=== PATIENT | female | born 1980 | race Caucasian/White ===

== ENCOUNTER 2016-12-31 10:37 | Emergency (ER) | payer MEDICAID ==
[~2016-12-31] VITALS: Wt 78.0 kg
[~2016-12-31 10:37] MED LIST: CALC-600 PO; CIPR500T4 PO; HYDR-906 PO; IBUP-1542 PO; IRON18TA PO; NEOM28OI TOP; ONDA4TAB35 PO; PHEN-538 PO; PREN1TAB49 PO; TAMS-14 PO
--- NOTE | 2016-12-31 12:07 | RADRPT ---
PROCEDURE: Right knee series. CLINICAL INDICATION: Right knee pain after trauma TECHNIQUE: Three views of the right knee are available for review. COMPARISON: None available FINDINGS: There is normal mineralization and alignment of the bones of the right knee. There is no definite f racture or dislocation. Evaluation of the central tibial plateau is somewhat limited due to multipl e overlying loose bodies.. Multiple loose bodies are seen posterior to the joint. There is a small joint effusion. Overlying soft tissues are unremarkable. IMPRESSION: 1. No evidence of acute fracture or dislocation. 2. Multiple loose bodies within the joint space with associated small joint effusion. RPTAT: KK .Medardo Edmonds MD, MD Date Time Electronically viewed and signed by .Medardo Edmonds MD, on 12/31/2016 12:06 .B/
[2016-12-31] MEDS ORDERED: TRAM50TA2 PO (12:20)
[2016-12-31] MEDS ORDERED: IBUP-1542 PO (12:20)
--- NOTE | 2016-12-31 12:26 | ERD ---
ER Documentation Chief Complaint Date/Time DATE: 12/31/16 TIME: 12:24 Chief Complaint R KNEE PAIN FROM FALLING YESTERDAY. NO DEFORMITY HPI This 36-year-old female presents after hitting her right knee on some luggage yesterday. She has pain in the lateral aspect of right knee. She has some pain with flexion. She denies any restricted range of motion set mildly due to pain but no weakness. She has no redness or bleeding. She denies any calf swelling, foot pain, additional symptoms ROS All systems reviewed and are negative except as per history of present illness. Medications Home Meds Active Scripts Tramadol HCl (Tramadol HCl) 50 Mg Tablet, 50 MG PO Q4 Y for PAIN, #15 TAB Prov:BRITTANY GUARDADO MD 12/31/16 Ibuprofen* (Motrin*) 600 Mg Tab, 600 MG PO Q6, #20 TAB Prov:BRITTANY GUARDADO MD 12/31/16 Tamsulosin Hcl* (Flomax*) 0.4 Mg Cap.er.24h, 0.4 MG PO QPM for 4 Days, #4 CAP Prov:KATARINA WHIPPLE 06/22/16 Ibuprofen* (Motrin*) 600 Mg Tab, 600 MG PO Q6, #30 TAB Prov:KATARINA WHIPPLE 06/22/16 Hydrocodone/Acetaminophen ([place] 5-325 Tablet) 1 Each Tablet, 1 TAB PO Q6H Y for PAIN, #20 TAB Prov:KATARINA WHIPPLE 06/22/16 Neomycin-Bacitrac Zinc-Polymyxin (Triple Antibiotic Ointment*) 28.35 Gm Oint..gm., 1 APPLIC TOP TID for 7 Days, EA Prov:BRITTANY GUARDADO MD 01/05/16 Ibuprofen* (Motrin*) 600 Mg Tab, 600 MG PO Q6, #16 TAB Prov:BRITTANY GUARDADO MD 01/05/16 Ondansetron Hcl* (Zofran* ODT) 4 mg -ODT Tab.disper, 4 MG PO Q8 Y for NAUSEA AND /OR VOMITING, #30 TAB Prov:RHONA SEVILLA NP 05/20/15 Phenazopyridine Hcl* (Pyridium*) 200 Mg Tab, 200 MG PO TID Y for DY, #6 TAB Prov:RHONA SEVILLAKenney MASCARA MOLDER 05/20/15 Ciprofloxacin Hcl* (Ciprofloxacin Hcl*) 500 Mg Tablet, 500 MG PO BID for 10 Days , TAB Prov:RHONA SEVILLA [employer] MOLDER 05/20/15 Reported Medications Calcium (Calcium) 500 Mg Tablet, 500 MG PO DAILY 03/11/12 Iron (Iron) 18 Mg Tablet, 18 MG PO DAILY 03/11/12 Vits W-Ca,Fe,Fa(<1MG) () 1 Tab Tablet, 1 TAB PO DAILY 03/11/12 Allergies Allergies: Coded Allergies: No Known Allergy (Unverified , 01/23/12) PMhx/Soc Medical and Surgical Hx: pt denies Medical Hx History of Surgery: Yes ( X2) Anesthesia Reaction: No Hx Neurological Disorder: No Hx Respiratory Disorders: No Hx Cardiac Disorders: No Hx Psychiatric Problems: No Hx Miscellaneous Medical Probl: No Hx Alcohol Use: No Hx Substance Use: No Hx Tobacco Use: No Smoking Status: Never smoker Physical Exam Vitals Vital Signs Date Time Temp Pulse Resp B/P Pulse Ox O2 Delivery O2 Flow Rate FiO2 12/31/16 10:40 98.8 84 20 140/81 98 Physical Exam Const: [] Alert, not ill-appearing Head: Atraumatic Eyes: Normal Conjunctiva ENT: Normal External Ears, Nose and Mouth. Neck: Full range of motion..~ No meningismus. Resp: Clear to auscultation bilaterally Cardio: Regular rate and rhythm, no murmurs Abd: Soft, non tender, non distended. Normal bowel sounds Skin: No petechiae or rashes Back: No midline or flank tenderness Ext: No cyanosis, or edema. Tenderness in the lateral right knee distally. There are no deformities, or instability. There is no calf swelling or Homans sign. There is a mild effusion without erythema or warmth Neur: Awake and alert Psych: Normal Mood and Affect Procedures/MDM X-ray right knee 3V Interpreted by me: Bones: [No fracture] Joints: [No dislocation] Foreign body: [None]. Impression-degenerative changes with loose bodies the right knee without acute findings She was placed in a right knee immobilizer. Patient is neurovascular intact after knee immobilizer. Patient has signs and symptoms of right knee contusion with the findings of chronic degenerative changes. She will discharged home with prescription for ibuprofen and tramadol instructions for follow-up with primary doctor orthopedist for pain next week. She shows return sooner for fevers, redness, new symptoms. There is no evidence of bacterial infection, dislocation, ischemia, DVT. Departure Diagnosis: Primary Impression: Knee injury Encounter type: initial encounter Laterality: right Qualified Code: S89.91XA - Knee injury, right, initial encounter Condition: Stable Patient Instructions: Knee Sprain Referrals: JAZMINE BENSON MD Additional Instructions: No acute findings on x-ray. There are degenerative changes. Recheck with orthopedics her primary doctor next week for persistent pain. Recheck sooner for fevers, redness, new symptoms. BRITTANY GUARDADO MD Dec 31, 2016 12:25
[2016-12-31 12:55] VITALS: BP 132/81; PULSE 80; RESP 20; TEMP 98.8
== END 2016-12-31 12:56 | disposition home or self-care (01) ==
LOC: FTE 10:37
DX: S89.91XA Unspecified injury of right lower leg, initial encounter (principal); W22.8XXA Striking against or struck by other objects, initial encounter; Y92.9 Unspecified place or not applicable
CPT/HCPCS: 29505; 73562; Z7502

== ENCOUNTER 2017-06-19 08:30 | Emergency (ER) | payer MEDICAID ==
[~2017-06-19] VITALS: Ht 162.6 cm; Wt 100.0 kg
[~2017-06-19 08:30] MED LIST changes: +TRAM50TA2 PO
[2017-06-19 08:34] VITALS: Ht 162.6 cm; Wt 100.0 kg
[2017-06-19] MEDS ORDERED: KETOROLAC 30 MG INJ IM STA (08:42)
--- NOTE | 2017-06-19 08:48 | ERD ---
ER Documentation Chief Complaint Date/Time DATE: 06/19/17 TIME: 08:45 Chief Complaint sudden onset 0200, right side back pain, denies pain w/urination HPI 37-year-old female complaining of sudden onset right flank pain at 2 AM this morning. Patient stated that she got up to urinate. When she went back to bed , she started feeling the pain. The pain is sharp and constant, and radiates to the right lower quadrant of the abdomen and the right groin. Patient stated that she was diagnosed with kidney stone on the left side last year, and this pain feels the same as the kidney stone pain she had last year. Denies fever or chills. Denies dysuria. Denies back injury. ROS All systems reviewed and are negative except as per history of present illness. Medications Home Meds Active Scripts Ibuprofen* (Motrin*) 600 Mg Tab, 600 MG PO Q6H Y for PAIN AND OR ELEVATED TEMP, #30 TAB Prov:SUSAN MORGAN [employer] 06/19/17 Tramadol HCl (Tramadol HCl) 50 Mg Tablet, 50 MG PO Q4 Y for PAIN, #15 TAB Prov:BRITTANY GUARDADO MD 12/31/16 Ibuprofen* (Motrin*) 600 Mg Tab, 600 MG PO Q6, #20 TAB Prov:BRITTANY GUARDADO MD 12/31/16 Tamsulosin Hcl* (Flomax*) 0.4 Mg Cap.er.24h, 0.4 MG PO QPM for 4 Days, #4 CAP Prov:KATARINA WHPIPLE 06/22/16 Ibuprofen* (Motrin*) 600 Mg Tab, 600 MG PO Q6, #30 TAB Prov:KATARINA WHIPPLE 06/22/16 Hydrocodone/Acetaminophen ([place] 5-325 Tablet) 1 Each Tablet, 1 TAB PO Q6H Y for PAIN, #20 TAB Prov:KATARINA WHIPPLE 06/22/16 Neomycin-Bacitrac Zinc-Polymyxin (Triple Antibiotic Ointment*) 28.35 Gm Oint..gm., 1 APPLIC TOP TID for 7 Days, EA Prov:BRITTANY GUARDADO MD 01/05/16 Ibuprofen* (Motrin*) 600 Mg Tab, 600 MG PO Q6, #16 TAB Prov:BRITTANY GUARDADO MD 01/05/16 Ondansetron Hcl* (Zofran* ODT) 4 mg -ODT Tab.disper, 4 MG PO Q8 Y for NAUSEA AND /OR VOMITING, #30 TAB Prov:RHONA SEVILLA NP 05/20/15 Phenazopyridine Hcl* (Pyridium*) 200 Mg Tab, 200 MG PO TID Y for DY, #6 TAB Prov:RHONA SEVILLA NP 05/20/15 Ciprofloxacin Hcl* (Ciprofloxacin Hcl*) 500 Mg Tablet, 500 MG PO BID for 10 Days , TAB Prov:RHONA SEVILLA NP 05/20/15 Reported Medications Calcium (Calcium) 500 Mg Tablet, 500 MG PO DAILY 03/11/12 Iron (Iron) 18 Mg Tablet, 18 MG PO DAILY 03/11/12 Vits W-Ca,Fe,Fa(<1MG) () 1 Tab Tablet, 1 TAB PO DAILY 03/11/12 Allergies Allergies: Coded Allergies: No Known Allergy (Unverified , 01/23/12) PMhx/Soc History of Surgery: No Anesthesia Reaction: No Hx Neurological Disorder: No Hx Respiratory Disorders: No Hx Cardiac Disorders: No Hx Psychiatric Problems: No Hx Miscellaneous Medical Probl: No Hx Alcohol Use: No Hx Substance Use: No Hx Tobacco Use: No Smoking Status: Never smoker Physical Exam Vitals Vital Signs Date Time Temp Pulse Resp B/P Pulse Ox O2 Delivery O2 Flow Rate FiO2 06/19/17 08:34 97.8 75 18 161/93 97 Physical Exam General: Well-developed, well-nourished, conscious and coherent, in no distress Skin: Warm and dry without rash, good texture and turgor Head: Normocephalic without evidence of trauma Eyes: Sclera and conjunctivae normal; pupils equal, round, and reactive to light; extraocular movements are intact Neck: Supple without meningismus or adenopathy. Carotids are equal. Trachea midline. No bruits or JVD Chest: Normal AP diameter. Good expansion without retractions. Nontender. Lungs are clear to auscultate bilaterally with good tidal volume Heart: Regular rate and rhythm. No murmur, rub, or gallops heard Abdomen: Soft, with mild right lower quadrant tenderness without masses, guarding, or rebound. Bowel sounds are active. No hepatosplenomegaly Back: Without spinal or CVA tenderness. Muscle tightness and tenderness noted in the right upper lumbar region. Pelvis: Nontender to palpation and stable to compression Extremities: Full range of motion. Good strength bilaterally. No clubbing, cyanosis, or edema. Peripheral pulses are intact. Sensation intact Neuro: Alert and oriented 4, GCS 15. Cranial nerves grossly intact. Motor and sensory exams nonfocal. Moves all extremities. Speech clear. Gait normal Results 24 hrs Laboratory Tests Test 06/19/17 08:50 Urine Color YELLOW Urine Clarity SLIGHTLY CLOUDY Urine pH 7.0 Urine Specific [place] 1.027 Urine Ketones NEGATIVEmg/dL Urine Nitrite NEGATIVEmg/dL Urine Bilirubin NEGATIVEmg/dL Urine Urobilinogen NEGATIVEmg/dL Urine Leukocyte Esterase NEGATIVELeu/ul Urine Microscopic RBC 1/HPF Urine Microscopic WBC 1/HPF Urine Squamous Epithelial Cells FEW/HPF Urine Bacteria FEW/HPF Urine Mucus MODERATE/HPF Urine Hemoglobin NEGATIVEmg/dL Urine Glucose NEGATIVEmg/dL Urine Total Protein 1+mg/dl Current Medications Medications (Trade) Dose Ordered Sig/Ashley Route PRN Reason Start Time Stop Time Status Last Admin Dose Admin Ketorolac Tromethamine (Toradol) 30 mg ONCE STAT IM 06/19/17 08:42 06/19/17 08:45 DC 06/19/17 08:57 PROCEDURE: US Retroperitoneum. CLINICAL INDICATION: Renal calculi TECHNIQUE: Multiple sonographic images of the retroperitoneum were obtained. Evaluation of the kidneys and bladder was performed as well as visualization of the aorta and other retroperitoneal structures using a curved array transducer. The images were reviewed on a PACS workstation. COMPARISON: CT dated 06/22/2016 FINDINGS: The kidneys are well visualized. The right kidney measures 9.6 cm in length. The left kidney measures 11.9 cm in length. There are no focal areas of abnormal echogenicity. There is no mass, calculus, or obstructive uropathy. No perinephric fluid collection is seen. The aorta and IVC are of normal caliber. There is no evidence for aortic aneurysm. The bladder is mostly decompressed but grossly unremarkable.. Bilateral ureteral jets are identified. The prevoid bladder volume equals 10 cc. Postvoid residual was not obtained. IMPRESSION: 1. Unremarkable retroperitoneal ultrasound. RPTAT: II .Viet Bucio MD, MD Date Time Electronically viewed and signed by .Viet Bucio MD, MD on 06/19/2017 09: 39 .M/ CC: SUSAN MORGAN. [employer] Procedures/MDM Well-appearing 37-year-old female history of kidney stone presented ED was right flank pain that radiates to the right lower quadrant. UA negative for blood, leukocyte, or nitrite. test negative. Renal ultrasound is unremarkable, no hydronephrosis is seen. I suspect patient pain is either due to obstructing urolithiasis, or back muscle spasm. I doubt urinary tract infection, pyelonephritis, acute appendicitis, ectopic , ovarian torsion, or ruptured ovarian cyst. Patient given Toradol 30 mg IM in the ED. Patient reports resolution of pain after Toradol. Patient appears well, stable for discharge and outpatient management. Medical decision making shared with patient and family. Education provided to patient and family. Patient and family expressed understanding of the plan. Medications on discharge: Ibuprofen. Follow-up: Primary care provider in 2-3 days or return to ED if worse. Disclaimer: Inadvertent spelling and grammatical errors are likely due to EHR/ dictation software use and do not reflect on the overall quality of patient care. Also, please note that the electronic time recorded on this note does not necessarily reflect the actual time of the patient encounter. Departure Diagnosis: Primary Impression: Flank pain Condition: Stable SUSAN MORGAN NP Jun 19, 2017 08:48
--- NOTE | 2017-06-19 09:40 | RADRPT ---
PROCEDURE: US Retroperitoneum. CLINICAL INDICATION: Renal calculi TECHNIQUE: Multiple sonographic images of the retroperitoneum were obtained. Evaluation of the ki dneys and bladder was performed as well as visualization of the aorta and other retroperitoneal stru ctures using a curved array transducer. The images were reviewed on a PACS workstation. COMPARISON: CT dated 06/22/2016 FINDINGS: The kidneys are well visualized. The right kidney measures 9.6 cm in length. The left kidney measures 11.9 cm in length. There are no focal areas of abnormal echogenicity. There is no mass, calculus, or obstructive uropathy. No perinephric fluid collection is seen. The aorta and IVC are of normal caliber. There is no evidence for aortic aneurysm. The bladder is mostly decompressed but grossly unremarkable.. Bilateral ureteral jets are identified. The prevoid bladder volume equals 10 cc. Postvoid residual was not obtained. IMPRESSION: 1. Unremarkable retroperitoneal ultrasound. RPTAT: II .Viet Bucio MD, MD Date Time Electronically viewed and signed by .Viet Bucio MD, on 06/19/2017 09:39 .M/
[2017-06-19 10:05] LABS: ADD UMIC YES; UR ASCORBIC ACID NEGATIVE (NEGATIVE); UR BACTERIA FEW /HPF (NONE SEEN); UR BILIRUBIN (Dip) NEGATIVE (NEGATIVE); UR BLOOD (Dip) NEGATIVE (NEGATIVE); UR CLARITY SLIGHTLY CLOUDY (CLEAR); UR COLOR YELLOW (YELLOW); UR GLUCOSE (Dip) NEGATIVE (NEGATIVE); UR KETONES (Dip) NEGATIVE (NEGATIVE); UR LEUKOCYTE ESTERASE (Dip) NEGATIVE Leu/ul (NEGATIVE); UR MUCUS MODERATE /HPF (NONE SEEN); UR NITRITE (Dip) NEGATIVE (NEGATIVE); UR RBC 1 /HPF (0-5); UR SPECIFIC GRAVITY (Dip) 1.027 (1.003-1.030); UR SQUAMOUS EPITHELIAL CELL FEW /HPF (FEW); UR TOTAL PROTEIN (Dip) 1+ mg/dl (NEGATIVE); UR UROBILINOGEN (Dip) NEGATIVE (NEGATIVE)
[2017-06-19] MEDS ORDERED: IBUP-1542 PO (10:10)
== END 2017-06-19 10:12 | disposition home or self-care (01) ==
LOC: FTE 08:30
DX: R10.31 Right lower quadrant pain (principal)
CPT/HCPCS: 76775; 81001; 96372; J1885; Z7502